=== PATIENT | male | born 1985 | race Caucasian/White ===

== ENCOUNTER 2018-05-06 13:32 | Emergency (ER) | payer SELFPAY ==
[2018-05-06] MEDS: IBUPROFEN 400 MG TABLET. PO (13:58)
[2018-05-06] MEDS: ONDANSETRON PF 4 MG/2 ML VIAL. IV (13:58)
[2018-05-06] MEDS: IV NORMAL SALINE 1000ML BAG 1,000 ML IV (13:58)
[2018-05-06 14:01] LABS: ADD MAN DIFF? NO
[2018-05-06 14:08] LABS: BASO # 0.1 x10^3/uL (0.0-0.2); BASO % 1 % (0-3); EOS # 0.1 x10^3/uL (0.0-0.7); EOS % 1 % (0-3); HEMATOCRIT 48.1 % (39.0-53.0); HEMOGLOBIN 16.6 g/dL (13.0-17.5); LYMPH # 2.5 x10^3/uL (1.0-4.8); LYMPH % 17 % (24-48); MEAN CORPUSCULAR HEMOGLOBIN 29 pg (25-35); MEAN CORPUSCULAR HGB CONC 35 g/dL (31-37); MEAN CORPUSCULAR VOLUME 83 fL (79-100); MONO % 7 % (0-9); NEUT # 10.8 x10^3uL (1.8-7.7); NEUT % 75 % (31-73); PLATELET COUNT 306 x10^3/uL (140-400); RED BLOOD COUNT 5.76 x10^6/uL (4.30-5.70); RED CELL DISTRIBUTION WIDTH 14.2 % (11.5-14.5); WHITE BLOOD COUNT 14.4 x10^3/uL (4.0-11.0)
[2018-05-06 14:09] LABS: BILIRUBIN,URINE SMALL (NEG); CLARITY,URINE CLEAR; COLOR,URINE ORANGE; GLUCOSE,URINE NEGATIVE (NEG); NITRITE,URINE NEGATIVE (NEG); PROTEIN,URINE 100 mg/dL (NEG-TRACE)
[2018-05-06 14:21] LABS: ANION GAP 13 (6-14); BACTERIA,URINE 0 /HPF (0-FEW); BLOOD UREA NITROGEN 17 mg/dL (8-26); BUN/CREATININE RATIO 15 (6-20); CARBON DIOXIDE 24 mmol/L (21-32); CHLORIDE 104 mmol/L (98-107); CREATININE 1.1 mg/dL (0.7-1.3); GFR 78.1; GLUCOSE 85 mg/dL (70-99); HYALINE CASTS, URINE FEW /HPF; POTASSIUM 3.7 mmol/L (3.5-5.1); SODIUM 141 mmol/L (136-145)
[2018-05-06 14:26] LABS: ALBUMIN 4.6 g/dL (3.4-5.0); ALBUMIN/GLOBULIN RATIO 1.2 (1.0-1.7); ALK PHOS 84 U/L (46-116); ALT (SGPT) 34 U/L (16-63); AST (SGOT) 27 U/L (15-37); TOTAL BILIRUBIN 0.9 mg/dL (0.2-1.0); TOTAL PROTEIN 8.4 g/dL (6.4-8.2)
[2018-05-06] MEDS ORDERED: IV NORMAL SALINE 500ML BAG 500 ML IV (15:15)
== END 2018-05-06 15:55 | disposition home or self-care (01) ==
LOC: ER 13:32
DX: T67.3XXA Heat exhaustion, anhydrotic, initial encounter (principal); R11.0 Nausea; R61 Generalized hyperhidrosis
CPT/HCPCS: 36415; 80053; 81001; 85025; 87086; 96374; 99284; J2405; J7030